=== PATIENT | male | born 1985 | race American Indian/Alaskan Native ===

== ENCOUNTER 2016-10-15 03:38 | Emergency (ER) | payer OTHER ==
[2016-10-15 03:53] VITALS: RESP 18
--- NOTE | 2016-10-15 04:32 | C.PDOC ---
History Of Present Illness Pt presents with pain to left shoulder when heavy lifting, he denies trauma, fall, weakness, numbness, chest pain Time Seen by Provider: 10/15/16 04:11 Chief Complaint (Nursing): Upper Extremity Problem/Injury History/Exam Limitations: no limitations Current Symptoms Are (Timing): Still Present Quality: Aching Severity: Mild Exacerbating Factor(s): Strenuous Use Of Affected Area, Movement Past Medical History Vital Signs: Last Vital Signs Temp 98.5 F 10/15/16 06:23 Pulse 85 10/15/16 06:23 Resp 18 10/15/16 06:23 BP 112/65 10/15/16 06:23 Pulse Ox 98 10/15/16 06:23 - Medical History PMH: Anxiety, Bipolar Disorder, Depression, Post Traumatic Stress Disorder Denies: HIV Family History: States: Unknown Family Hx - Social History Hx Tobacco Use: Yes Hx Alcohol Use: Yes Hx Substance Use: No - Immunization History Hx Tetanus Toxoid Vaccination: No Hx Influenza Vaccination: No Hx Pneumococcal Vaccination: No Review Of Systems Cardiovascular: Negative for: Chest Pain, Palpitations Musculoskeletal: Positive for: Shoulder Pain (left) Neurological: Negative for: Weakness, Numbness Physical Exam - Physical Exam Appears: Well, Non-toxic Skin: Normal Color Eye(s): bilateral: Normal Inspection, PERRL Neck: Normal Cardiovascular: Rhythm Regular, No Murmur Respiratory: Normal Breath Sounds, No Rales, No Wheezing Extremity: Normal ROM, Tenderness (minimal on motion and palpation of anterior left shoulder), No Deformity, No Swelling Extremity: Bilateral: Atraumatic Pulses: Left Radial: Normal, Right Radial: Normal Neurological/Psych: Oriented x3, Normal Speech, Normal Motor, Normal Sensation Gait: Steady ED Course And Treatment O2 Sat by Pulse Oximetry: 99 Pulse Ox Interpretation: Normal Progress Note: Pt appears well, comfortable , sleeping in NAD. Pt with no cardiac risk factors, no CP, SOB. Pt will follow up in Clinic and understands return precautions Disposition - Disposition Referrals: Non [facility] Provider, [Primary Care Provider] - Disposition: HOME/ ROUTINE Disposition Time: 06:12 Condition: STABLE Additional Instructions: Take motrin for pain Sling for support Follow up with pMD Return to ER if worse Prescriptions: Ibuprofen [Motrin] 600 mg PO Q6H #20 tab Instructions: Shoulder Sprain (ED) - Clinical Impression Clinical Impression: Sprain of shoulder, left
[2016-10-15 06:23] VITALS: BP 112/65; PULSE 85; TEMP 98.5
--- NOTE | 2016-10-15 09:20 | RAD ---
PROCEDURE: Radiographs of the Left Shoulder HISTORY: pain COMPARISON: Comparison made with radiographs left shoulder 10/22/2015 FINDINGS: BONES: Normal. No fracture. JOINTS: Normal. Glenohumeral and acromioclavicular joints preserved. No osteoarthritis. SOFT TISSUES: Normal. OTHER FINDINGS: None. IMPRESSION: Normal radiographs of the left shoulder.
[2016-10-17 00:08] VITALS: O2SAT 99
== END 2016-10-15 06:23 | disposition home or self-care (01) ==
LOC: C.ER 03:38 → SUPCPDRO 03:38 → C.ER 06:23
DX: S43.402A Unspecified sprain of left shoulder joint, initial encounter (principal); X50.0XXA Overexertion from strenuous movement or load, initial encounter